=== PATIENT | male | born 1965 | race African-American/Black ===

== ENCOUNTER 2017-10-25 17:32 | Emergency (ER) | payer OTHER ==
[2017-10-25 18:07] VITALS: BP 138/83; PULSE 86; TEMP 98.5; BMI 36.6
--- NOTE | 2017-10-25 18:07 | PDOC ---
Rapid Medical Evaluation Time Seen by Provider: 10/25/17 17:53 Medical Evaluation: 10/25/17 18:04 Pt c/o: abd pain with vomiting since yesterday 5 total, no fever, no diarrhea Pt on brief exam: vss, Pt ordered for: cbc, comp, lipase, mag, zofran sl P to proceed to the ED: Discharge Disposition - Diagnosis Abdominal pain - Referrals - Patient Instructions - Post Discharge Activity
[2017-10-25] MEDS ORDERED: ONDANSETRON *ODT* 4 MG TABLET SL ONE ×2 (18:08→19:47)
[2017-10-25] MEDS ORDERED: ONDANSETRON *ODT* 4 MG TABLET ONE ×2 (18:15→19:50)
[2017-10-25 18:27] LABS: BASO % 0.6 % (0-2.0); EOS % 1.4 % (0-4.5); HEMATOCRIT 46.9 % (35.4-49); HEMOGLOBIN 15.7 GM/dL (11.7-16.9); LYMPH % 16.6 % (8-40); MCH 33.6 pg (25.7-33.7); MCHC 33.5 g/dl (32.0-35.9); MEAN CELL VOLUME 100.5 fl (80-96); MEAN PLT VOLUME 8.6 fl (7.5-11.1); MONO % 7.9 % (3.8-10.2); NEUT % 73.5 % (42.8-82.8); PLATELET COUNT 194 K/MM3 (134-434); RBC 4.66 M/mm3 (4.00-5.60); RDW 12.5 % (11.9-15.9); WHITE BLOOD COUNT 6.4 K/mm3 (4.0-10.0)
[2017-10-25 19:12] LABS: URINE APPEARANCE CLEAR; URINE BILIRUBIN NEGATIVE (NEGATIVE); URINE BLOOD NEGATIVE (NEGATIVE); URINE COLOR YELLOW; URINE GLUCOSE (UA) NEGATIVE (NEGATIVE); URINE KETONE NEGATIVE (NEGATIVE); URINE LEUK ESTERASE NEGATIVE (NEGATIVE); URINE NITRITE NEGATIVE (NEGATIVE); URINE PROTEIN NEGATIVE (NEGATIVE); URINE UROBILINOGEN NEGATIVE mg/dL (0.2-1.0)
[2017-10-25 19:16] LABS: ANION GAP 5 (8-16); BILIRUBIN,TOTAL 0.5 mg/dL (0.2-1.0); BLOOD UREA NITROGEN 12 mg/dL (7-18); CALCIUM 8.5 mg/dL (8.5-10.1); CHLORIDE 106 mmol/L (98-107); CO2 28 mmol/L (21-32); CREATININE 1.6 mg/dL (0.7-1.3); GLUCOSE,RANDOM 85 mg/dL (74-106); SGOT/AST 12 U/L (15-37); SGPT/ALT 27 U/L (12-78); SODIUM 139 mmol/L (136-145); TOT PROT 8.1 g/dl (6.4-8.2)
[2017-10-25 19:17] LABS: ALK PHOS 72 U/L (45-117); LIPASE 380 U/L (73-393)
--- NOTE | 2017-10-25 19:46 | PDOC ---
History of Present Illness - General Chief Complaint: Pain, Acute Stated Complaint: NAUSEA/VOMITING Time Seen by Provider: 10/25/17 17:53 - History of Present Illness Initial Comments: 52 year old male with history of HLD presenting with nausea, NBNB vomiting, and NB diarrhea for the past three days. Patient states he had sudden onset of these symptoms with occasional relief with 2 episodes of vomiting daily and two episodes of diarrhea daily. He states that he ate a whole chicken dinner last night and went to bed without issue but had an episode of nausea with vomiting this morning after walking around and running errands in [facility]. He does admit to an occasional band like headache without visual symptoms. Denies fevers , chills, chest pain, syncope, SOB, or other sick symptoms. Past History - Past Medical History Allergies/Adverse Reactions: Allergies Allergy/AdvReac Type Severity Reaction Status Date / Time No Known Allergies Allergy Verified 10/25/17 18:06 Home Medications: Ambulatory Orders Pantoprazole Sodium [Protonix] 40 mg PO DAILY #30 tablet. 10/25/17 COPD: No Other medical history: DENIES MEDICAL HX - Suicide/Smoking/Psychosocial Hx Smoking History: Never smoked Hx Alcohol Use: No Drug/Substance Use Hx: No Review of Systems - Review of Systems Constitutional: No: Chills, Fever, Loss of Appetite HEENTM: No: Recent change in vision Respiratory: No: Cough, Shortness of Breath, Wheezing Cardiac (ROS): No: Chest Pain, Irregular Heart Rate ABD/GI: Yes: Diarrhea, Nausea, Vomiting : No: Dysuria, Discharge, Frequency Musculoskeletal: No: Back Pain, Joint Pain Integumentary: No: Lesions, Lumps, Pallor, Pruritus, Rash Neurological: No: Headache, Numbness, Paresthesia Psychiatric: No: Anxiety, Depression *Physical Exam - Vital Signs Last Vital Signs Temp Pulse Resp BP Pulse Ox 98.5 F 86 16 138/83 97 10/25/17 18:02 10/25/17 18:02 10/25/17 18:02 10/25/17 18:02 10/25/17 18:02 - Physical Exam General Appearance: Yes: Nourished, Appropriately Dressed. No: Apparent Distress HEENT: positive: EOMI, BECKIE, Normal ENT Inspection, Normal Voice Neck: positive: Trachea midline, Normal Thyroid, Supple. negative: Tender, Rigid Respiratory/Chest: positive: Lungs Clear, Normal Breath Sounds. negative: Chest Tender, Respiratory Distress Cardiovascular: positive: Regular Rhythm, Regular Rate Gastrointestinal/Abdominal: positive: Normal Bowel Sounds, Tender (tender to deep palpation in the epigastrium), Flat, Soft Musculoskeletal: positive: Normal Inspection. negative: CVA Tenderness Extremity: positive: Normal Capillary Refill, Normal Inspection, Normal Range of Motion. negative: Tender Integumentary: positive: Normal Color, Dry, Warm Neurologic: positive: Fully Oriented, Alert, Normal Mood/Affect, Normal Response , Motor Strength 01/19 ED Treatment Course - LABORATORY CBC & Chemistry Diagram: 10/25/17 18:21 10/25/17 18:21 - ADDITIONAL ORDERS Additional order review: Laboratory Results 10/25/17 10/25/17 18:51 18:21 Sodium 139 Potassium 4.0 Chloride 106 Carbon Dioxide 28 Anion Gap 5 L BUN 12 Creatinine 1.6 H Creat Clearance w eGFR 45.98 Random Glucose 85 Calcium 8.5 Magnesium 2.0 Total Bilirubin 0.5 AST 12 L ALT 27 Alkaline Phosphatase 72 Total Protein 8.1 Albumin 4.0 Lipase 380 Urine Color Yellow Urine Appearance Clear Urine pH 5.0 Ur Specific [place] 1.023 Urine Protein Negative Urine Glucose (UA) Negative Urine Ketones Negative Urine Blood Negative Urine Nitrite Negative Urine Bilirubin Negative Urine Urobilinogen Negative Ur Leukocyte Esterase Negative 10/25/17 18:21 RBC 4.66 MCV 100.5 H MCHC 33.5 RDW 12.5 MPV 8.6 Neutrophils % 73.5 Lymphocytes % 16.6 Monocytes % 7.9 Eosinophils % 1.4 Basophils % 0.6 - Medications Given in the ED: ED Medications Discontinued Medications Generic Name Dose Route Start Last Admin Trade Name Freq PRN Reason Stop Dose Admin Ondansetron HCl 4 mg 10/25/17 18:08 10/25/17 18:16 Zofran Odt - SL 10/25/17 18:09 4 mg ONCE ONE Administration Medical Decision Making - Medical Decision Making 52 year old male with 3 days of gastroenteritis and slight headache. States that headache may be worse in the mornings and is a new headache, Because of the constellation of a new headache in a 52 year old with GI symptoms we will performed a head CT to rule out intracranial lesions. Head CT was negative. Labs were only significant for elevated creatinine of 1.6 but patient urinating well. Likely an element of dehydration. Patient's symptoms improved with Zofran , Maalox, and 1 liter NS. Abdominal exam remained benign. Will send home with results, protonix, and GI follow up. 10/25/17 23:30 *DC/Admit/Observation/Transfer Diagnosis at time of Disposition: Gastroenteritis Abdominal pain Qualifiers: Abdominal location: epigastric Qualified Code(s): R10.13 - Epigastric pain - Discharge Dispostion Disposition: HOME Condition at time of disposition: Stable - Prescriptions Prescriptions: Pantoprazole Sodium [Protonix] 40 mg PO DAILY #30 tablet.dr - Referrals Referrals: Drew Isaac [Primary Care Provider] - Ethan Torres MD [Staff Physician] - - Patient Instructions Printed Discharge Instructions: DI for Abdominal Pain-Adult Additional Instructions: Please follow up with your doctor or the doctor provided for further evaluation. - Post Discharge Activity
--- NOTE | 2017-10-25 19:49 | PDOC ---
Attending Attestation - [facility] HPI: 10/25/17 19:53 The patient is a 52 year old male, with a significant past medical history of hyperlipidemia (taking atorvastatin), who presents to the emergency department with sudden onset of nausea, vomiting, non-radiating epigastric pain, diarrhea, and subjective fevers about 3 days ago. The patient states he has been taking Tylenol intermittently for his subjective fevers, but denies recording his temperature. He reports his emesis as nonbloody. He reports his stool is watery , but denies blood in his stool. The patient denies sick contacts and recent travels. The patient denies chest pain, shortness of breath, headache and dizziness. The patient denies chills, and constipation. The patient denies dysuria, frequency, urgency and hematuria. Allergies: NKDA - Physicial Exam PE: 10/25/17 19:57 GENERAL: Well developed, well nourished. Awake and alert. No acute distress. HEENT: Normocephalic, atraumatic. PERRLA, EOMI. No conjunctival pallor. Sclera are non- icteric. Moist mucous membranes. Oropharynx is clear. NECK: Supple. Full ROM. No JVD. Carotid pulses 2+ and symmetric, without bruits. No thyromegaly. No lymphadenopathy. CARDIOVASCULAR: Regular rate and rhythm. No murmurs, rubs, or gallops. Distal pulses are 2+ and symmetric. PULMONARY: No evidence of respiratory distress. Lungs clear to auscultation bilaterally. No wheezing, rales or rhonchi. ABDOMINAL: (+) minimal epigastric tenderness to deep palpation. Soft. Non-distended. No rebound or guarding. No organomegaly. Normoactive bowel sounds. MUSCULOSKELETAL Normal range of motion at all joints. No bony deformities or tenderness. No CVA tenderness. EXTREMITIES: No cyanosis. No clubbing. No edema. No calf tenderness. SKIN: Warm and dry. Normal capillary refill. No rashes. No jaundice. NEUROLOGICAL: Alert, awake, appropriate. Cranial nerves 2-12 intact. Normoreflexic in the upper and lower extremities. Normal speech. Toes are down-going bilaterally. Gait is normal without ataxia. PSYCHIATRIC: Cooperative. Good eye contact. Appropriate mood and affect. - Medical Decision Making 10/25/17 19:53 Documentation prepared by Micaela Keene, acting as medical claims processor for Samir Rudd DO <Micaela Keene - Last Filed: 10/25/17 19:57> - Resident Resident Name: TammyKaitjovanniadonis - ED Attending Attestation I have performed the following: I have examined & evaluated the patient, The case was reviewed & discussed with the resident, I agree w/resident's findings & plan, Exceptions are as noted - Medical Decision Making 10/25/17 20:57 {Pt treated and released. <Samir Rudd - Last Filed: 10/25/17 23:10> Discharge Disposition - Discharge Dispostion Admit: No <Samir Rudd - Last Filed: 10/25/17 23:10> - Diagnosis Abdominal pain - Discharge Dispostion Disposition: HOME Condition at time of disposition: Stable - Referrals Referrals: Drew Isaac [Primary Care Provider] - Ethan Torres MD [Staff Physician] - - Patient Instructions Printed Discharge Instructions: DI for Abdominal Pain-Adult Additional Instructions: Please follow up with your doctor or the doctor provided for further evaluation. - Post Discharge Activity
[2017-10-25] MEDS ORDERED: MAG HYDROX/AL HYDROX/SIMETH 30 ML UNIT-DOSE CUP PO ONE (19:50)
[2017-10-25] MEDS ORDERED: MAG HYDROX/AL HYDROX/SIMETH 30 ML UNIT-DOSE CUP ONE (19:53)
[2017-10-25] MEDS ORDERED: SODIUM CHLORIDE 0.9% 1000 ML INFUS.BAG IV ONE (21:41)
== END 2017-10-25 23:24 | disposition home or self-care (01) ==
LOC: JER 17:32
PROC: 3E0337Z Introduction of Electrolytic and Water Balance Substance into Peripheral Vein, Percutaneous Approach (ICD-10-PCS; principal; 2017-10-25)
DX: R10.13 Epigastric pain (principal); K52.9 Noninfective gastroenteritis and colitis, unspecified
CPT/HCPCS: 36415; 70450-TC; 80053; 81003; 83690; 83735; 85025; 87804; 99284-25

== ENCOUNTER 2017-10-30 07:22 | Observation (INO) | payer OTHER ==
[2017-10-30] MEDS ORDERED: SODIUM CHLORIDE 1,000 ML IV STA (08:57)
[2017-10-30] MEDS ORDERED: ONDANSETRON 4 MG/2 ML VIAL IVPUSH ONE (08:57)
[2017-10-30] MEDS ORDERED: MAG HYDROX/AL HYDROX/SIMETH 30 ML UNIT-DOSE CUP PO ONE (08:58)
[2017-10-30] MEDS ORDERED: ONDANSETRON 4 MG/2 ML VIAL ONE (09:09)
[2017-10-30] MEDS ORDERED: MAG HYDROX/AL HYDROX/SIMETH 30 ML UNIT-DOSE CUP ONE (09:09)
[2017-10-30] MEDS ORDERED: FAMOTIDINE 20 MG/50 ML IVPB 20 MG/50 ML MG IVPB ONE (09:15)
[2017-10-30 09:31] LABS: BASO % 0.8 % (0-2.0); EOS % 3.2 % (0-4.5); HEMATOCRIT 42.4 % (35.4-49); HEMOGLOBIN 14.3 GM/dL (11.7-16.9); LYMPH % 19.1 % (8-40); MCH 33.7 pg (25.7-33.7); MCHC 33.8 g/dl (32.0-35.9); MEAN CELL VOLUME 99.6 fl (80-96); MEAN PLT VOLUME 8.4 fl (7.5-11.1); MONO % 9.6 % (3.8-10.2); NEUT % 67.3 % (42.8-82.8); PLATELET COUNT 184 K/MM3 (134-434); RBC 4.25 M/mm3 (4.00-5.60); RDW 12.4 % (11.9-15.9); WHITE BLOOD COUNT 6.5 K/mm3 (4.0-10.0)
--- NOTE | 2017-10-30 09:39 | PDOC ---
Attending Attestation - Resident Resident Name: Deion Kaur - ED Attending Attestation I have performed the following: I have examined & evaluated the patient, The case was reviewed & discussed with the resident, I agree w/resident's findings & plan, Exceptions are as noted - HPI HPI: 10/30/17 09:38 52y M present with intermittent epigastric pain for the past fe days associated nbnb vomiting, also endorses several episodes of nonbloody diarrhea. pt notes pain seems worse about 30 min after eating and is associated with the vomiting. The pain has been more persistent recently. no associated fever/chills, sick contacts, recent travel, cp, sob. the pain is non exertional. on exam pt has mild epgiastric/RUQ tendernes ddx includes gastritis, pancreatitis, gal lstones, acs will btaon blood work RQU US ekg 10/30/17 12:45 labs reviewed noted forslightly eelvated lipase GB US shows no gall stones considered outpt management pt was reasssed and was unable to toleate oral intake will observe the pt in the hosptial for his possibly evolving pancreattis - Physicial Exam PE: 11/01/17 10:57 see above - Medical Decision Making 11/01/17 10:57 see above Heart Score/ECG Review - ECG Impressions Comment:: 10/30/17 10:47 Twelve-lead EKG was performed and reviewed by me. There is normal sinus rhythm with a normal rate. rate of 63 The axis is normal. The intervals are normal. There is normal R wave progression There are no ST or T wave abnormalities. Impression: Normal twelve-lead EKG
--- NOTE | 2017-10-30 09:47 | PDOC ---
History of Present Illness - General Chief Complaint: Pain, Acute Stated Complaint: ABD PAIN Time Seen by Provider: 10/30/17 08:32 History Source: Patient Exam Limitations: No Limitations - History of Present Illness Initial Comments: 10/30/17 09:41 Patient is 52M with history of HLD here today complaining of epigastric abdominal pain. He says that he was evaluated 5 days ago. Review of chart shows abdominal labs, head ct done, all within normal limits with exception of Cr at 1.6. Patient was discharged with pantoprazole and PCP follow up. Patient describes the abdominal pain as colicky, with sharp sudden onsets with gradual improvement. Patient does not associated changes in pain level with eating. Patient also complains of associated nausea, vomiting, and diarrhea. He denies any blood or bile in stool and vomit. Patient states he is able to tolerate PO. Past History - Past Medical History Allergies/Adverse Reactions: Allergies Allergy/AdvReac Type Severity Reaction Status Date / Time No Known Allergies Allergy Verified 10/30/17 07:26 Home Medications: Ambulatory Orders Pantoprazole Sodium [Protonix] 40 mg PO DAILY #30 tablet. 10/25/17 COPD: No Hypercholesterolemia: Yes - Suicide/Smoking/Psychosocial Hx Smoking History: Never smoked Information on smoking cessation initiated: No Hx Alcohol Use: No Drug/Substance Use Hx: No Substance Use Type: None Review of Systems - Review of Systems Comments:: 10/30/17 09:45 GENERAL/CONSTITUTIONAL: No fever or chills. No weakness. HEAD, EYES, EARS, NOSE AND THROAT: No change in vision. No sore throat. CARDIOVASCULAR: No chest pain or shortness of breath RESPIRATORY: No cough, wheezing, or hemoptysis. GASTROINTESTINAL: Positive for nausea, vomiting, diarrhea. Negative for constipation. GENITOURINARY: No dysuria, frequency, or change in urination. MUSCULOSKELETAL: No joint or muscle swelling or pain. No neck or back pain. SKIN: No rash NEUROLOGIC: Positive for headache. Negative for loss of consciousness, or change in strength/sensation. ENDOCRINE: No increased thirst. No abnormal weight change HEMATOLOGIC/LYMPHATIC: No anemia, easy bleeding, or history of blood clots. ALLERGIC/IMMUNOLOGIC: No hives or skin allergy. *Physical Exam - Vital Signs Last Vital Signs Temp Pulse Resp BP Pulse Ox 98.1 F 68 18 126/72 100 10/30/17 07:27 10/30/17 07:27 10/30/17 07:27 10/30/17 07:27 10/30/17 07:27 - Physical Exam Comments: 10/30/17 09:45 GENERAL: Awake, alert, and fully oriented, in no acute distress, sitting up in bed, appears comfortable HEAD: No signs of trauma, normocephalic, atraumatic EYES: PERRLA, EOMI, sclera anicteric, conjunctiva clear ENT: Auricles normal inspection, hearing grossly normal, nares patent, oropharynx clear without exudates. Moist mucosa NECK: Normal ROM, supple, no lymphadenopathy, JVD, or masses LUNGS: No distress, speaks full sentences, clear to auscultation bilaterally HEART: Regular rate and rhythm, normal S1 and S2, no murmurs, rubs or gallops, peripheral pulses normal and equal bilaterally. ABDOMEN: Tender to palpation in RUQ and epigastrium. Bennett negative. No guarding, no rebound. No masses EXTREMITIES: Normal inspection, Normal range of motion, no edema. No clubbing or cyanosis. NEUROLOGICAL: Cranial nerves II through XII grossly intact. Normal speech, normal gait, no focal sensorimotor deficits SKIN: Warm, Dry, normal turgor, no rashes or lesions noted. ED Treatment Course - LABORATORY CBC & Chemistry Diagram: 10/30/17 09:25 10/30/17 09:25 - RADIOLOGY Radiology Studies Ordered: Category Date Time Status ABDOMEN US [US] Stat Ultrasound 10/30/17 08:58 Ordered - Medications Given in the ED: ED Medications Discontinued Medications Generic Name Dose Route Start Last Admin Trade Name Corry PRN Reason Stop Dose Admin Al Hydroxide/Mg Hydroxide 30 ml 10/30/17 08:58 10/30/17 09:31 Mylanta Oral Suspension - PO 10/30/17 08:59 30 ml ONCE ONE Administration Ondansetron HCl 4 mg 10/30/17 08:57 10/30/17 09:31 Zofran Injection IVPUSH 10/30/17 08:58 4 mg ONCE ONE Administration Medical Decision Making - Medical Decision Making 10/30/17 09:47 Patient is 52M with history of HLD here today complaining of abdominal pain. Vital signs stable and normal. Bedside ultrasound of gallbladder shows possible gallstone, exam limited by probe crystal dysfunction. Will evaluate further with abdominal labs, ekg, and formal ultrasound. Will treat with fluids, zofran , pepcid, maalox. Differential diagnosis includes, but is not limited to: biliary colic, cholecystitis, choledocholithiasis, colitis, pancreatitis. 10/30/17 16:46 Laboratory Tests 10/30/17 10/30/17 10/30/17 09:25 09:25 10:59 WBC 6.5 Hgb 14.3 Hct 42.4 Plt Count 184 Creatinine 1.4 H Lipase 634 H Urine Nitrite Negative Ur Leukocyte Esterase Negative Lipase is mildly elevated. Ultrasound shows no evidence of gallstones, no other abnormality seen. Patient unable to tolerate PO, still has pain. Will admit to observation. 10/30/17 18:[address] Black via Dr Raymond *DC/Admit/Observation/Transfer Diagnosis at time of Disposition: Abdominal pain - Discharge Dispostion Condition at time of disposition: Stable Admit: Yes - Referrals Referrals: Drew Isaac [Primary Care Provider] - - Patient Instructions - Post Discharge Activity
[2017-10-30 09:58] LABS: ALBUMIN 3.5 g/dl (3.4-5.0); ANION GAP 7 (8-16); BILIRUBIN,TOTAL 0.6 mg/dL (0.2-1.0); BLOOD UREA NITROGEN 13 mg/dL (7-18); CHLORIDE 106 mmol/L (98-107); CO2 26 mmol/L (21-32); CREATININE 1.4 mg/dL (0.7-1.3); GLUCOSE,RANDOM 85 mg/dL (74-106); POTASSIUM 3.8 mmol/L (3.5-5.1); SGOT/AST 10 U/L (15-37); SGPT/ALT 26 U/L (12-78); SODIUM 139 mmol/L (136-145); TOT PROT 7.1 g/dl (6.4-8.2)
[2017-10-30 09:59] LABS: ALK PHOS 80 U/L (45-117)
[2017-10-30 10:13] LABS: LIPASE 634 U/L (73-393)
[2017-10-30] MEDS ORDERED: LACTATED RINGERS SOLUTION 1000 ML INFUS.BAG IV ONE (11:15)
[2017-10-30 11:18] LABS: URINE APPEARANCE CLEAR; URINE BILIRUBIN NEGATIVE (NEGATIVE); URINE BLOOD NEGATIVE (NEGATIVE); URINE COLOR STRAW; URINE GLUCOSE (UA) NEGATIVE (NEGATIVE); URINE KETONE NEGATIVE (NEGATIVE); URINE LEUK ESTERASE NEGATIVE (NEGATIVE); URINE NITRITE NEGATIVE (NEGATIVE); URINE PROTEIN NEGATIVE (NEGATIVE); URINE UROBILINOGEN NEGATIVE mg/dL (0.2-1.0)
--- NOTE | 2017-10-30 14:10 | EKG ---
Test Reason : Blood Pressure : / mmHG Vent. Rate : 063 BPM Atrial Rate : 063 BPM P-R Int : 140 ms QRS Dur : 084 ms QT Int : 424 ms P-R-T Axes : 062 031 038 degrees QTc Int : 433 ms NORMAL SINUS RHYTHM NORMAL ECG NO PREVIOUS ECGS AVAILABLE Confirmed by MD Delphine, Jered ([id number]) on 10/30/2017 2:09:44 PM Referred By: Confirmed By:Jered Akers MD
[2017-10-30] MEDS ORDERED: METOCLOPRAMIDE HCL INJECTION 10 MG/2 ML VIAL IVPUSH ONE (16:49)
[2017-10-30] MEDS ORDERED: METOCLOPRAMIDE HCL INJECTION 10 MG/2 ML VIAL ONE (16:53)
--- NOTE | 2017-10-30 19:04 | PN ---
Teaching Attending Note Name of Resident: Charlette Raymond ATTENDING PHYSICIAN STATEMENT I saw and evaluated the patient. I reviewed the resident's note and discussed the case with the resident. I agree with the resident's findings and plan as documented. SUBJECTIVE: OBJECTIVE: Vital Signs Period Temp Pulse Resp BP Sys/Ortega Pulse Ox Last 24 Hr 98.1 F-99.3 F 68-74 18-20 126-129/72-76 99-100 Laboratory Tests 10/30/17 10/30/17 10/30/17 09:25 09:25 10:59 WBC 6.5 RBC 4.25 Hgb 14.3 Hct 42.4 MCV 99.6 H MCH 33.7 MCHC 33.8 RDW 12.4 Plt Count 184 MPV 8.4 Neutrophils % 67.3 Lymphocytes % 19.1 Monocytes % 9.6 Eosinophils % 3.2 D Basophils % 0.8 Sodium 139 Potassium 3.8 Chloride 106 Carbon Dioxide 26 Anion Gap 7 L BUN 13 Creatinine 1.4 H Creat Clearance w eGFR 53.64 Random Glucose 85 Calcium 8.0 L Total Bilirubin 0.6 AST 10 L ALT 26 Alkaline Phosphatase 80 Total Protein 7.1 Albumin 3.5 Lipase 634 H Urine Color Straw Urine Appearance Clear Urine pH 6.0 Ur Specific [place] 1.008 Urine Protein Negative Urine Glucose (UA) Negative Urine Ketones Negative Urine Blood Negative Urine Nitrite Negative Urine Bilirubin Negative Urine Urobilinogen Negative Ur Leukocyte Esterase Negative Home Medications Medication Instructions Recorded Pantoprazole Sodium [Protonix] 40 mg PO DAILY #30 tablet. 10/25/17 ASSESSMENT AND PLAN:
--- NOTE | 2017-10-30 19:11 | HP ---
CHIEF COMPLAINT: abdominal pain PCP: HISTORY OF PRESENT ILLNESS: This is a 52 year old male with no known significant past medical history, presents to the emergency room with complaints of intractable abdominal pain, nausea, vomiting, diarrhea for the past week. He was recently seen here at [facility] this past week for nausea, vomiting and headache, was sent home on maalox and protonix. Today he denies headache, but still with continuous NBNB vomiting , non bloody watery diarrhea, and sharp intermittent mid epigastric pain. Denies fever, chills, recent travel history or sick contacts. He had a colonoscopy in [place] a week ago, results unknown, symptoms started one day later. ER course was notable for: wbc wnl; slightly elevated lipase; abdominal ultrasound with gallstones; no billiary obstruction or dilation. 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 10/25/17 REVIEW OF SYSTEMS CONSTITUTIONAL: Absent: fever, chills, diaphoresis, generalized weakness, malaise, loss of appetite, weight change HEENT: Absent: rhinorrhea, nasal congestion, throat pain, throat swelling, difficulty swallowing, mouth swelling, ear pain, eye pain, visual changes CARDIOVASCULAR: Absent: chest pain, syncope, palpitations, irregular heart rate, lightheadedness , peripheral edema RESPIRATORY: Absent: cough, shortness of breath, dyspnea with exertion, orthopnea, wheezing, stridor, hemoptysis GASTROINTESTINAL: Positive:abdominal pain, abdominal distension, nausea, vomiting, diarrhea, Absent: constipation, melena, hematochezia GENITOURINARY: Absent: dysuria, frequency, urgency, hesitancy, hematuria, flank pain, genital pain MUSCULOSKELETAL: Absent: myalgia, arthralgia, joint swelling, back pain, neck pain SKIN: Absent: rash, itching, pallor HEMATOLOGIC/IMMUNOLOGIC: Absent: easy bleeding, easy bruising, lymphadenopathy, frequent infections ENDOCRINE: Absent: unexplained weight gain, unexplained weight loss, heat intolerance, cold intolerance NEUROLOGIC: Absent: headache, focal weakness or paresthesias, dizziness, unsteady gait, seizure, mental status changes, bladder or bowel incontinence PSYCHIATRIC: Absent: anxiety, depression, suicidal or homicidal ideation, hallucinations. PHYSICAL EXAMINATION Vital Signs - 24 hr 10/30/17 10/30/17 07:27 18:22 Temperature 98.1 F 99.3 F Pulse Rate 68 Pulse Rate [ 74 Left Radial] Respiratory 18 20 Rate Blood Pressure 126/72 Blood Pressure 129/76 [Left Arm] O2 Sat by Pulse 100 99 Oximetry (%) GENERAL: Awake, alert, and fully oriented, in no acute distress. HEAD: Normal with no signs of trauma. LUNGS: Breath sounds equal, clear to auscultation bilaterally. No wheezes, and no crackles. No accessory muscle use. HEART: Regular rate and rhythm, normal S1 and S2 without murmur, rub or gallop. ABDOMEN: Soft, tender, not distended, normoactive bowel sounds, no guarding, no rebound, no masses. No hepatomegaly or splenomegaly. MUSCULOSKELETAL: Normal range of motion at all joints. No bony deformities or tenderness. No CVA tenderness. UPPER EXTREMITIES: 2+ pulses, warm, well-perfused. No cyanosis. No clubbing. No peripheral edema. LOWER EXTREMITIES: 2+ pulses, warm, well-perfused. No calf tenderness. No peripheral edema. NEUROLOGICAL: Cranial nerves II-XII intact. Normal speech. Normal gait. PSYCHIATRIC: Cooperative. Good eye contact. Appropriate mood and affect. SKIN: Warm, dry, normal turgor, no rashes or lesions noted, normal capillary refill. Laboratory Results - last 24 hr 10/30/17 10/30/17 10/30/17 09:25 09:25 10:59 WBC 6.5 RBC 4.25 Hgb 14.3 Hct 42.4 MCV 99.6 H MCH 33.7 MCHC 33.8 RDW 12.4 Plt Count 184 MPV 8.4 Neutrophils % 67.3 Lymphocytes % 19.1 Monocytes % 9.6 Eosinophils % 3.2 D Basophils % 0.8 Sodium 139 Potassium 3.8 Chloride 106 Carbon Dioxide 26 Anion Gap 7 L BUN 13 Creatinine 1.4 H Creat Clearance w eGFR 53.64 Random Glucose 85 Calcium 8.0 L Total Bilirubin 0.6 AST 10 L ALT 26 Alkaline Phosphatase 80 Total Protein 7.1 Albumin 3.5 Lipase 634 H Urine Color Straw Urine Appearance Clear Urine pH 6.0 Ur Specific [place] 1.008 Urine Protein Negative Urine Glucose (UA) Negative Urine Ketones Negative Urine Blood Negative Urine Nitrite Negative Urine Bilirubin Negative Urine Urobilinogen Negative Ur Leukocyte Esterase Negative ASSESSMENT/PLAN: This is a 52 year old male with no known medical history, presents with abdominal pain, n, v, d, for the past week. Likely etiology viral gastroeneritis. #abdominal pain, n, v, diarrhea; most likely viral vs bacterial etiology: vs cholecysitis less likely; -npo overnight; try soft non fatty breakfast in am -keep hydrated; IVF NS -monitor electrolytes -zofran prn -pain management -r/o c diff -influenza swab -get colonoscopy results #elevated lipase; pancreatitis unlikely; -not 3x upper limit of normal ; may be due to gall stones -repeat lipase in am #elevated creatinine; acute vs chronic? -improved from previous -Cr 1.4; previous cr 1.9 -most likely from dehydration -calculate FE NA -IVF Hydration; VTE: scds FEN: Fluids; NS Electrolytes: monitor; Diet: soft; in am Disposition: Obs; Case discussed with attending Dr. Lakshmi Raymond MD, PGY -2 Problem List - Problem (1) Acute kidney failure Code(s): N17.9 - ACUTE KIDNEY FAILURE, UNSPECIFIED (2) Abdominal pain Code(s): R10.9 - UNSPECIFIED ABDOMINAL PAIN (3) Gastroenteritis Code(s): K52.9 - NONINFECTIVE GASTROENTERITIS AND COLITIS, UNSPECIFIED Visit type - Emergency Visit Emergency Visit: Yes ED Registration Date: 10/30/17 Care time: The patient presented to the Emergency Department on the above date and was hospitalized for further evaluation of their emergent condition. - New Patient This patient is new to me today: Yes Date on this admission: 10/30/17 - Critical Care Critical Care patient: No
[2017-10-30] MEDS ORDERED: ONDANSETRON 4 MG/2 ML VIAL IVPUSH PRN (19:14)
[2017-10-30] MEDS ORDERED: PANTOPRAZOLE SODIUM 40 MG VIAL IVPUSH ONE (19:30)
[2017-10-30] MEDS ORDERED: PANTOPRAZOLE SODIUM 40 MG VIAL ONE (20:27)
[2017-10-30] MEDS: SODIUM CHLORIDE 1,000 ML IV SCH (20:34)
[2017-10-30] MEDS ORDERED: MORPHINE SULFATE 10 MG/1 ML *VIAL IVPUSH PRN (22:45)
[2017-10-31 03:32] VITALS: BMI 37.1
[2017-10-31 07:52] LABS: BASO % 0.7 % (0-2.0); EOS % 4.6 % (0-4.5); HEMATOCRIT 41.6 % (35.4-49); HEMOGLOBIN 13.9 GM/dL (11.7-16.9); LYMPH % 30.1 % (8-40); MCH 33.4 pg (25.7-33.7); MCHC 33.3 g/dl (32.0-35.9); MEAN CELL VOLUME 100.2 fl (80-96); MEAN PLT VOLUME 8.6 fl (7.5-11.1); MONO % 9.9 % (3.8-10.2); NEUT % 54.7 % (42.8-82.8); PLATELET COUNT 172 K/MM3 (134-434); RBC 4.15 M/mm3 (4.00-5.60); RDW 12.7 % (11.9-15.9); WHITE BLOOD COUNT 5.2 K/mm3 (4.0-10.0)
--- NOTE | 2017-10-31 07:59 | PN ---
Physical Exam: SUBJECTIVE: Patient seen and examined. No acute events overnight. Patient says his epigastric abdominal pain is now a 7/10 compared to yesterday's 10/10 pain. He says he had 1 non bloody watery bowel movement last night. He denies nausea, vomiting, SOB, chest pain, dizziness. OBJECTIVE: Vital Signs Period Temp Pulse Resp BP Sys/Ortega Pulse Ox Last 24 Hr 97.9 F-99.3 F 62-74 18-20 111-130/65-78 97-100 GENERAL: The patient is awake, alert, and fully oriented, in no acute distress. HEAD: Normal with no signs of trauma. EYES: PERRL, extraocular movements intact, sclera anicteric, conjunctiva clear. No ptosis. ENT:] oropharynx clear without exudates, moist mucous membranes. NECK: supple. LUNGS: Breath sounds equal, clear to auscultation bilaterally, no wheezes, no crackles, no accessory muscle use. HEART: Regular rate and rhythm, S1, S2 without murmur, rub or gallop. ABDOMEN: Soft, epigastric tenderness, +BS, nondistended, normoactive bowel sounds, no guarding, no rebound EXTREMITIES: 2+ pulses, warm, well-perfused, no edema. NEUROLOGICAL: Cranial nerves II through XII grossly intact. Normal speech, gait not observed. PSYCH: Normal mood, normal affect. SKIN: Warm, dry, normal turgor, no rashes or lesions noted Laboratory Results - last 24 hr 10/30/17 10/30/17 10/30/17 09:25 09:25 10:59 WBC 6.5 RBC 4.25 Hgb 14.3 Hct 42.4 MCV 99.6 H MCH 33.7 MCHC 33.8 RDW 12.4 Plt Count 184 MPV 8.4 Neutrophils % 67.3 Lymphocytes % 19.1 Monocytes % 9.6 Eosinophils % 3.2 D Basophils % 0.8 Sodium 139 Potassium 3.8 Chloride 106 Carbon Dioxide 26 Anion Gap 7 L BUN 13 Creatinine 1.4 H Creat Clearance w eGFR 53.64 Random Glucose 85 Calcium 8.0 L Total Bilirubin 0.6 AST 10 L ALT 26 Alkaline Phosphatase 80 Total Protein 7.1 Albumin 3.5 Lipase 634 H Urine Color Straw Urine Appearance Clear Urine pH 6.0 Ur Specific Douglas 1.008 Urine Protein Negative Urine Glucose (UA) Negative Urine Ketones Negative Urine Blood Negative Urine Nitrite Negative Urine Bilirubin Negative Urine Urobilinogen Negative Ur Leukocyte Esterase Negative 10/31/17 06:00 WBC 5.2 RBC 4.15 Hgb 13.9 Hct 41.6 MCV 100.2 H MCH 33.4 MCHC 33.3 RDW 12.7 Plt Count 172 MPV 8.6 Neutrophils % 54.7 Lymphocytes % 30.1 D Monocytes % 9.9 Eosinophils % 4.6 H Basophils % 0.7 Sodium Potassium Chloride Carbon Dioxide Anion Gap BUN Creatinine Creat Clearance w eGFR Random Glucose Calcium Total Bilirubin AST ALT Alkaline Phosphatase Total Protein Albumin Lipase Urine Color Urine Appearance Urine pH Ur Specific Douglas Urine Protein Urine Glucose (UA) Urine Ketones Urine Blood Urine Nitrite Urine Bilirubin Urine Urobilinogen Ur Leukocyte Esterase Active Medications Generic Name Dose Route Start Last Admin Trade Name Freq PRN Reason Stop Dose Admin Sodium Chloride 1,000 mls @ 125 mls/hr 10/30/17 19:15 10/30/17 20:34 Normal Saline - IV 125 mls/hr ASDIR XOCHILT Administration Morphine Sulfate 0.5 mg 10/30/17 22:45 Morphine Injection - IVPUSH Q6H PRN PAIN LEVEL 7 - 10 Ondansetron HCl 4 mg 10/30/17 19:14 Zofran Injection IVPUSH Q4H PRN NAUSEA AND/OR VOMITING Pantoprazole Sodium 40 mg 10/31/17 10:00 Protonix - PO DAILY [facility] ASSESSMENT/PLAN: This is a 52 year old male with no known medical history, presents with abdominal pain, n, v, d, for the past week. Likely etiology viral gastroeneritis. #Epigastric Pain/Nausea/Vomiting -Likely secondary to Viral Gastroenteritis vs Mild pancreatitis vs Gastritis -improving -No Leukocytosis, afebrile -GI consulted: Dr. Torres -IV Fluids NS @ 125ml/hour -Morphine 0.5mg q6h -Zofran 4mg Q4H -Protonix 40mg Daily -Abd/Renal U/S unremarkable for acute pathology. The pacreas is obscured by bowel gas and cannot be evaluated. -Abd CT w/o contrast ordered -Dispo planning in 24 hours if non concerning imaging, tolerating diet well, pending GI input. #Macrocytic Anemia -B12, Folate pending #Elevated Creatinine -acute vs chronic -urine electrolytes, creatinine -IV fluids #FEN IV fluids NS @125ml/hour Replete as needed Soft diet #PPX EAB Visit type - Emergency Visit Emergency Visit: Yes ED Registration Date: 10/30/17 Care time: The patient presented to the Emergency Department on the above date and was hospitalized for further evaluation of their emergent condition. - New Patient This patient is new to me today: Yes Date on this admission: 10/31/17 - Critical Care Critical Care patient: No
[2017-10-31 08:13] LABS: CHLORIDE 107 mmol/L (98-107); POTASSIUM 4.2 mmol/L (3.5-5.1); SODIUM 141 mmol/L (136-145)
[2017-10-31 09:10] LABS: ALBUMIN 3.1 g/dl (3.4-5.0); ALK PHOS 57 U/L (45-117); ANION GAP 7 (8-16); BILIRUBIN,TOTAL 0.6 mg/dL (0.2-1.0); BLOOD UREA NITROGEN 11 mg/dL (7-18); CALCIUM 8.3 mg/dL (8.5-10.1); CO2 27 mmol/L (21-32); CREATININE 1.6 mg/dL (0.7-1.3); GLUCOSE,RANDOM 92 mg/dL (74-106); MAGNESIUM 2.2 mg/dL (1.8-2.4); PHOSPHOROUS 2.6 mg/dL (2.5-4.9); SGOT/AST 11 U/L (15-37); SGPT/ALT 22 U/L (12-78); TOT PROT 6.6 g/dl (6.4-8.2)
[2017-10-31 09:24] LABS: LIPASE 564 U/L (73-393)
[2017-10-31] MEDS: PANTOPRAZOLE 40 MG TABLET (FP) PO SCH (09:41)
[2017-10-31] MEDS: SODIUM CHLORIDE 1,000 ML IV SCH (09:41)
[2017-10-31] MEDS ORDERED: PANTOPRAZOLE 40 MG TABLET (FP) PO ONE (10:00)
--- NOTE | 2017-10-31 18:13 | PN ---
Teaching Attending Note Name of Resident: Zakia Fry ATTENDING PHYSICIAN STATEMENT Time of evaluation: 12:30 PM I saw and evaluated the patient. I reviewed the resident's note and discussed the case with the resident. I agree with the resident's findings and plan as documented. SUBJECTIVE: Patient seen and examined. Still with epigastric abdominal pain, though improved from admission. Eating better. No other complaints. OBJECTIVE: Vital Signs Period Temp Pulse Resp BP Sys/Ortega Pulse Ox Last 24 Hr 97.5 F-99.3 F 62-87 18-20 111-130/64-78 97-100 Intake & Output 10/28/17 10/29/17 10/30/17 10/31/17 23:59 23:59 23:59 23:59 Intake Total 1100 Balance 1100 Weight 220 lb 223 lb 4.8 oz General: sitting at edge of bed in no acute distress Abdomen: soft, epigastric tenderness, no voluntary or involuntary guarding or rigidity, ND, positive bowel sounds extremities: no edema Chest: CTAB, no rales or wheezing Home Medication List Medication Instructions Recorded Confirmed Type Atorvastatin Ca [Lipitor] 10 mg PO DAILY 10/31/17 10/31/17 History Active Medications Generic Name Dose Route Start Last Admin Trade Name Freq PRN Reason Stop Dose Admin Sodium Chloride 1,000 mls @ 125 mls/hr 10/30/17 19:15 10/31/17 09:41 Normal Saline - IV 125 mls/hr ASDIR XOCHILT Administration Morphine Sulfate 0.5 mg 10/30/17 22:45 Morphine Injection - IVPUSH Q6H PRN PAIN LEVEL 7 - 10 Ondansetron HCl 4 mg 10/30/17 19:14 Zofran Injection IVPUSH Q4H PRN NAUSEA AND/OR VOMITING Pantoprazole Sodium 40 mg 10/31/17 10:00 10/31/17 09:41 Protonix - PO 40 mg DAILY XOCHILT Administration Laboratory Results - last 24 hr 10/31/17 10/31/17 10/31/17 06:00 06:00 08:15 WBC 5.2 RBC 4.15 Hgb 13.9 Hct 41.6 MCV 100.2 H MCH 33.4 MCHC 33.3 RDW 12.7 Plt Count 172 MPV 8.6 Neutrophils % 54.7 Lymphocytes % 30.1 D Monocytes % 9.9 Eosinophils % 4.6 H Basophils % 0.7 Sodium 141 Potassium 4.2 Chloride 107 Carbon Dioxide 27 Anion Gap 7 L BUN 11 Creatinine 1.6 H Creat Clearance w eGFR 45.98 Random Glucose 92 Calcium 8.3 L Phosphorus 2.6 Magnesium 2.2 Total Bilirubin 0.6 GGT AST 11 L ALT 22 Alkaline Phosphatase 57 D Total Protein 6.6 Albumin 3.1 L Triglycerides 113 Lipase 564 H 10/31/17 14:50 WBC RBC Hgb Hct MCV MCH MCHC RDW Plt Count MPV Neutrophils % Lymphocytes % Monocytes % Eosinophils % Basophils % Sodium Potassium Chloride Carbon Dioxide Anion Gap BUN Creatinine Creat Clearance w eGFR Random Glucose Calcium Phosphorus Magnesium Total Bilirubin GGT 28 AST ALT Alkaline Phosphatase Total Protein Albumin Triglycerides Lipase Abdominal ultrasound noted ASSESSMENT AND PLAN: 52 yom with no significant PMHx admitted with epigastric abdominal pain, nausea , vomiting, diarrhea. _Epigastric pain/nausea/vomiting/diarrhea, ?Viral gastroenteritis vs mild gastritis vs mild pancreatitis Though diarrhea argues against the same. -HLD Plan: Improved, still with epigastric symptoms. GI consult. PPI, IVF, supportive management. No h/o ETOH/Gall stones and non concerning TG. CT A/P oral contrast to assess pancreas/bowels. Dispo planning in 24 hours if non concerning imaging, tolerating diet well, pending GI input. Plan discussed with patient in detail, all questions answered.
--- NOTE | 2017-10-31 18:23 | CON.GI ---
Consult Consult Specialty:: GI Reason for Consultation:: nausea, vomiting, diarrhea x 7 days. Acute onset - History of Present Illness History of Present Illness: A healthy 52 yom with acute onset chills, nausea, vomiting, diarrhea 7 days ago. Denies hematemesis, hematochezia, hematemsis, vomiting coffee-ground like material, dysphagia, odynophagia, jaundice, abdominal pain, altered bowels, pencil-thin, or ribbon-like stools. HAd a screening colonoscopy [address] Vásquez. No ill contacts, eating out. Lives alone. No new medications, diets, herbal preps. - History Source History Provided By: Patient - Alcohol/Substance Use Hx Alcohol Use: No - Smoking History Smoking history: Never smoked Home Medications - Allergies Allergies/Adverse Reactions: Allergies Allergy/AdvReac Type Severity Reaction Status Date / Time No Known Allergies Allergy Verified 10/30/17 07:26 - Home Medications Home Medications: Ambulatory Orders Pantoprazole Sodium [Protonix] 40 mg PO DAILY #30 tablet. 10/25/17 Atorvastatin Ca [Lipitor] 10 mg PO DAILY 10/31/17 Family Disease History - Family Disease History Family History: Unremarkable Review of Systems Findings/Remarks: as per HPI, H&P Physical Exam-GI Vital Signs: Vital Signs Temperature 97.5 F L 10/31/17 09:39 Pulse Rate 87 10/31/17 09:39 Respiratory Rate 18 10/31/17 09:39 Blood Pressure 116/64 10/31/17 09:39 O2 Sat by Pulse Oximetry (%) 97 10/31/17 09:00 Constitutional: Yes: Well Nourished, No Distress, Calm Eyes: Yes: Conjunctiva Clear HENT: Yes: Atraumatic Neck: Yes: Supple Cardiovascular: Yes: Regular Rate and Rhythm Respiratory: Yes: Regular Gastrointestinal Inspection: No: Distention ...Auscultate: Yes: Normoactive Bowel Sounds ...Palpate: Yes: Soft. No: Firm/Rigid, Guarding, Mass, Tenderness, Tenderness, Epigastium, Tenderness, Rebound ...Percussion: No: Fluid Wave Neurological: Yes: Alert, Oriented Labs: CBC, BMP 10/31/17 06:00 10/31/17 06:00 Laboratory Tests 10/30/17 10/30/17 10/30/17 09:25 09:25 10:59 WBC 6.5 RBC 4.25 Hgb 14.3 Hct 42.4 MCV 99.6 H MCH 33.7 MCHC 33.8 RDW 12.4 Plt Count 184 MPV 8.4 Neutrophils % 67.3 Lymphocytes % 19.1 Monocytes % 9.6 Eosinophils % 3.2 D Basophils % 0.8 Sodium 139 Potassium 3.8 Chloride 106 Carbon Dioxide 26 Anion Gap 7 L BUN 13 Creatinine 1.4 H Creat Clearance w eGFR 53.64 Random Glucose 85 Calcium 8.0 L Phosphorus Magnesium Total Bilirubin 0.6 GGT AST 10 L ALT 26 Alkaline Phosphatase 80 Total Protein 7.1 Albumin 3.5 Triglycerides Lipase 634 H Vitamin B12 Serum Folate Urine Color Straw Urine Appearance Clear Urine pH 6.0 Ur Specific [place] 1.008 Urine Protein Negative Urine Glucose (UA) Negative Urine Ketones Negative Urine Blood Negative Urine Nitrite Negative Urine Bilirubin Negative Urine Urobilinogen Negative Ur Leukocyte Esterase Negative Ur Random Sodium 10/31/17 10/31/17 10/31/17 06:00 06:00 06:35 WBC 5.2 RBC 4.15 Hgb 13.9 Hct 41.6 MCV 100.2 H MCH 33.4 MCHC 33.3 RDW 12.7 Plt Count 172 MPV 8.6 Neutrophils % 54.7 Lymphocytes % 30.1 D Monocytes % 9.9 Eosinophils % 4.6 H Basophils % 0.7 Sodium 141 Potassium 4.2 Chloride 107 Carbon Dioxide 27 Anion Gap 7 L BUN 11 Creatinine 1.6 H Creat Clearance w eGFR 45.98 Random Glucose 92 Calcium 8.3 L Phosphorus 2.6 Magnesium 2.2 Total Bilirubin 0.6 GGT AST 11 L ALT 22 Alkaline Phosphatase 57 D Total Protein 6.6 Albumin 3.1 L Triglycerides Lipase 564 H Vitamin B12 Serum Folate Urine Color Urine Appearance Urine pH Ur Specific [place] Urine Protein Urine Glucose (UA) Urine Ketones Urine Blood Urine Nitrite Urine Bilirubin Urine Urobilinogen Ur Leukocyte Esterase Ur Random Sodium 180 10/31/17 10/31/17 10/31/17 08:15 14:50 14:50 WBC RBC Hgb Hct MCV MCH MCHC RDW Plt Count MPV Neutrophils % Lymphocytes % Monocytes % Eosinophils % Basophils % Sodium Potassium Chloride Carbon Dioxide Anion Gap BUN Creatinine Creat Clearance w eGFR Random Glucose Calcium Phosphorus Magnesium Total Bilirubin GGT 28 AST ALT Alkaline Phosphatase Total Protein Albumin Triglycerides 113 Lipase Vitamin B12 396 Serum Folate 6 Urine Color Urine Appearance Urine pH Ur Specific [place] Urine Protein Urine Glucose (UA) Urine Ketones Urine Blood Urine Nitrite Urine Bilirubin Urine Urobilinogen Ur Leukocyte Esterase Ur Random Sodium 11/01/17 11/01/17 06:00 06:00 WBC 4.9 RBC 4.16 Hgb 14.0 Hct 42.0 MCV 101.0 H MCH 33.7 MCHC 33.4 RDW 12.2 Plt Count 170 MPV 8.4 Neutrophils % Lymphocytes % Monocytes % Eosinophils % Basophils % Sodium 140 Potassium 3.9 Chloride 107 Carbon Dioxide 27 Anion Gap 6 L BUN 12 Creatinine 1.5 H Creat Clearance w eGFR 49.54 Random Glucose 82 Calcium 7.7 L Phosphorus Magnesium Total Bilirubin 0.6 GGT AST 8 L D ALT 21 Alkaline Phosphatase 60 Total Protein 6.4 Albumin 3.1 L Triglycerides Lipase Vitamin B12 Serum Folate Urine Color Urine Appearance Urine pH Ur Specific [place] Urine Protein Urine Glucose (UA) Urine Ketones Urine Blood Urine Nitrite Urine Bilirubin Urine Urobilinogen Ur Leukocyte Esterase Ur Random Sodium Imaging - Results Ultrasound: Report Reviewed (liver, renal) Problem List - Problems (1) Gastroenteritis Code(s): K52.9 - NONINFECTIVE GASTROENTERITIS AND COLITIS, UNSPECIFIED Assessment/Plan A 52 yom with acute, viral illness. Asymptomatic and tolerating regular diet. Fatty liver noted on US Macrocytosis Elevated Cr b12/Folate renal evaluation PO hydration observe overnight
[2017-11-01 07:34] LABS: MCH 33.7 pg (25.7-33.7); MCHC 33.4 g/dl (32.0-35.9); MEAN PLT VOLUME 8.4 fl (7.5-11.1); PLATELET COUNT 170 K/MM3 (134-434); RBC 4.16 M/mm3 (4.00-5.60); RDW 12.2 % (11.9-15.9); WHITE BLOOD COUNT 4.9 K/mm3 (4.0-10.0)
[2017-11-01 07:55] LABS: ALBUMIN 3.1 g/dl (3.4-5.0); ANION GAP 6 (8-16); BLOOD UREA NITROGEN 12 mg/dL (7-18); CALCIUM 7.7 mg/dL (8.5-10.1); CHLORIDE 107 mmol/L (98-107); CO2 27 mmol/L (21-32); GLUCOSE,RANDOM 82 mg/dL (74-106); POTASSIUM 3.9 mmol/L (3.5-5.1); SODIUM 140 mmol/L (136-145)
[2017-11-01 07:59] LABS: ALK PHOS 60 U/L (45-117); BILIRUBIN,TOTAL 0.6 mg/dL (0.2-1.0); CREATININE 1.5 mg/dL (0.7-1.3); SGOT/AST 8 U/L (15-37); SGPT/ALT 21 U/L (12-78); TOT PROT 6.4 g/dl (6.4-8.2)
--- NOTE | 2017-11-01 09:32 | PN ---
Progress Note, Physician History of Present Illness: no events. tolerating reg. diet. asymptomatic - Current Medication List Current Medications: Active Medications Sodium Chloride (Normal Saline -) 1,000 mls @ 125 mls/hr IV ASDIR [facility] Last Admin: 10/31/17 09:41 Dose: 125 mls/hr Morphine Sulfate (Morphine Injection -) 0.5 mg IVPUSH Q6H PRN PRN Reason: PAIN LEVEL 7 - 10 Ondansetron HCl (Zofran Injection) 4 mg IVPUSH Q4H PRN PRN Reason: NAUSEA AND/OR VOMITING Pantoprazole Sodium (Protonix -) 40 mg PO DAILY [facility] Last Admin: 10/31/17 09:41 Dose: 40 mg - Objective Vital Signs: Vital Signs Temperature 98.2 F 11/01/17 08:57 Pulse Rate 72 11/01/17 08:57 Respiratory Rate 18 11/01/17 08:57 Blood Pressure 133/64 11/01/17 08:57 O2 Sat by Pulse Oximetry (%) 97 10/31/17 21:33 Constitutional: Yes: Well Nourished, No Distress, Calm Gastrointestinal: Yes: Soft. No: Melena, Tenderness, Vomiting Neurological: Yes: Alert, Oriented Labs: CBC, BMP 11/01/17 06:00 11/01/17 06:00 Problem List - Problems (1) Gastroenteritis Code(s): K52.9 - NONINFECTIVE GASTROENTERITIS AND COLITIS, UNSPECIFIED Assessment/Plan A 52 yom with acute, viral illness. Asymptomatic and tolerating regular diet. Fatty liver noted on US Macrocytosis Elevated Cr b12/Folate renal evaluation PO hydration OK to d/c from GI perspective with 1 week follow up if continues to be asymptomatic
[2017-11-01] MEDS: PANTOPRAZOLE 40 MG TABLET (FP) PO SCH (09:35)
[2017-11-01] MEDS: SODIUM CHLORIDE 1,000 ML IV SCH (10:41)
--- NOTE | 2017-11-01 13:05 | PN ---
Teaching Attending Note Name of Resident: Zakia Fry ATTENDING PHYSICIAN STATEMENT Time of evaluation: 10:30 AM I saw and evaluated the patient. I reviewed the resident's note and discussed the case with the resident. I agree with the resident's findings and plan as documented. SUBJECTIVE: Patient seen and examined, no complaints. Tolerating diet well. OBJECTIVE: Vital Signs Period Temp Pulse Resp BP Sys/Ortega Pulse Ox Last 24 Hr 96 F-98.4 F 61-72 18-18 102-133/57-73 97-97 Intake & Output 10/29/17 10/30/17 10/31/17 11/01/17 23:59 23:59 23:59 23:59 Intake Total 2475 1375 Balance 2475 1375 Weight 220 lb 223 lb 4.8 oz General: lying in bed in no acute distress Abdomen: soft, NT, ND, positive bowel sounds Home Medication List Medication Instructions Recorded Confirmed Type Atorvastatin Ca [Lipitor] 10 mg PO DAILY 10/31/17 10/31/17 History Active Medications Generic Name Dose Route Start Last Admin Trade Name Freq PRN Reason Stop Dose Admin Sodium Chloride 1,000 mls @ 125 mls/hr 10/30/17 19:15 11/01/17 10:41 Normal Saline - IV 125 mls/hr ASDIR XOCHILT Administration Morphine Sulfate 0.5 mg 10/30/17 22:45 Morphine Injection - IVPUSH Q6H PRN PAIN LEVEL 7 - 10 Ondansetron HCl 4 mg 10/30/17 19:14 Zofran Injection IVPUSH Q4H PRN NAUSEA AND/OR VOMITING Pantoprazole Sodium 40 mg 10/31/17 10:00 11/01/17 09:35 Protonix - PO 40 mg DAILY XOCHILT Administration Laboratory Results - last 24 hr 10/31/17 10/31/17 10/31/17 06:35 14:50 14:50 WBC RBC Hgb Hct MCV MCH MCHC RDW Plt Count MPV Sodium Potassium Chloride Carbon Dioxide Anion Gap BUN Creatinine Creat Clearance w eGFR Random Glucose Calcium Total Bilirubin GGT 28 AST ALT Alkaline Phosphatase Total Protein Albumin Vitamin B12 396 Serum Folate 6 Ur Random Sodium 180 11/01/17 11/01/17 06:00 06:00 WBC 4.9 RBC 4.16 Hgb 14.0 Hct 42.0 MCV 101.0 H MCH 33.7 MCHC 33.4 RDW 12.2 Plt Count 170 MPV 8.4 Sodium 140 Potassium 3.9 Chloride 107 Carbon Dioxide 27 Anion Gap 6 L BUN 12 Creatinine 1.5 H Creat Clearance w eGFR 49.54 Random Glucose 82 Calcium 7.7 L Total Bilirubin 0.6 GGT AST 8 L D ALT 21 Alkaline Phosphatase 60 Total Protein 6.4 Albumin 3.1 L Vitamin B12 Serum Folate Ur Random Sodium ASSESSMENT AND PLAN: 52 yom with no significant PMHx admitted with epigastric abdominal pain, nausea , vomiting, diarrhea. _Epigastric pain/nausea/vomiting/diarrhea, ?Viral gastroenteritis vs mild gastritis vs mild pancreatitis Though diarrhea argues against the same. -HLD -QUINTIN vs CKD. Plan: Symptoms resolved, tolerating diet well, GI input appreciated. Patient declined CT A/p but no indication currently. Unclear if CKD stage II, renal ultrasound neg for acute conerns. Patient notified of the findings, discussed in detail need for follow up Blood work, discussion with PCP and outpatient referral to roll tester and to avoid NSAIDs or OTC meds without discussing with his doctor. Patient relays full understanding and agrees to comply with the same. D.c home today. .
[2017-11-01 13:25] VITALS: BP 129/60; PULSE 92; TEMP 98.4
--- NOTE | 2017-11-01 14:48 | DS ---
Physical Exam: SUBJECTIVE: Patient seen and examined. No acute events overnight. Says he feels great, had 1 formed BM, tolerated meals well. Patient refused abdominal CT scan last night. He denies abdominal pain, nausea, vomiting, chest pain, dizziness, SOB, dysuria. OBJECTIVE: Vital Signs Period Temp Pulse Resp BP Sys/Ortega Pulse Ox Last 24 Hr 96 F-98.4 F 61-92 18-20 102-133/57-73 97-97 PHYSICAL EXAM GENERAL: The patient is awake, alert, and fully oriented, in no acute distress. HEAD: Normal with no signs of trauma. EYES: PERRL, extraocular movements intact, sclera anicteric, conjunctiva clear. No ptosis. ENT:] oropharynx clear without exudates, moist mucous membranes. NECK: supple. LUNGS: Breath sounds equal, clear to auscultation bilaterally, no wheezes, no crackles, no accessory muscle use. HEART: Regular rate and rhythm, S1, S2 without murmur, rub or gallop. ABDOMEN: Soft, nontender, +BS, nondistended, normoactive bowel sounds, no guarding, no rebound EXTREMITIES: 2+ pulses, warm, well-perfused, no edema. NEUROLOGICAL: Cranial nerves II through XII grossly intact. Normal speech, gait not observed. PSYCH: Normal mood, normal affect. SKIN: Warm, dry, normal turgor, no rashes or lesions noted LABS Laboratory Results - last 24 hr 10/31/17 10/31/17 10/31/17 06:35 14:50 14:50 WBC RBC Hgb Hct MCV MCH MCHC RDW Plt Count MPV Sodium Potassium Chloride Carbon Dioxide Anion Gap BUN Creatinine Creat Clearance w eGFR Random Glucose Calcium Total Bilirubin GGT 28 AST ALT Alkaline Phosphatase Total Protein Albumin Vitamin B12 396 Serum Folate 6 Ur Random Sodium 180 11/01/17 11/01/17 06:00 06:00 WBC 4.9 RBC 4.16 Hgb 14.0 Hct 42.0 MCV 101.0 H MCH 33.7 MCHC 33.4 RDW 12.2 Plt Count 170 MPV 8.4 Sodium 140 Potassium 3.9 Chloride 107 Carbon Dioxide 27 Anion Gap 6 L BUN 12 Creatinine 1.5 H Creat Clearance w eGFR 49.54 Random Glucose 82 Calcium 7.7 L Total Bilirubin 0.6 GGT AST 8 L D ALT 21 Alkaline Phosphatase 60 Total Protein 6.4 Albumin 3.1 L Vitamin B12 Serum Folate Ur Random Sodium HOSPITAL COURSE: Date of Admission:10/30/17 This is a 52 year old male with no known significant past medical history, presents to the emergency room with complaints of intractable abdominal pain, nausea, vomiting, diarrhea. He was recently seen here at [facility] this past week for nausea, vomiting and headache, was sent home on maalox and protonix. Patient was found to have Acute gastroenteritis, mildly elevated Lipase levels ( 634) and QUINTIN (likely chronic). He was afebrile with no leukocytosis on admission. He was treated with IV fluids and was given pain meds for pain control. Patient refused Abdominal CT. Abd/Renal U/S unremarkable for acute pathology. Patient's symptoms resolved and was able to tolerate diet. Patient will need a renal evaluation outpatient. Unclear if patient is Stage 2 CKD. Discussed with patient the need for outpatient follow up with PCP and Display Decorator. Patient was directed to avoid NSAIDs or any nephrotoxins. Patient in agreement. Date of Discharge: 11/01/17 Minutes to complete discharge: 35 Discharge Summary Reason For Visit: ABD PAIN Condition: Improved - Instructions Diet, Activity, Other Instructions: You were here because of abdominal pain likely caused by a viral infection Your blood test "lipase" was mildly elevated. You had liver ultrasound that was negative for stones or concerns. You were found with abnormal kidney blood test 1.4-1.6). You had a kidney ultrasound that was negative for acute concerns. You will need follow up with your doctor about the same and likely referral to a kidney specialist. Do not take Ibuprofen, aleve, or any other NSAIDs or over the counter medications without discussion with your doctor. Maintain adequate hydration. Follow up with your Primary care physician Recommend to have blood work for kidneys (BMP) with your doctor in 1 week. Follow up with your president ceo & founder in 1 week. There will be no changes to your home medications. Take protonix as was prescribed with emergency room on your recent visit, till seen by your doctor in a week and then as directed. If you have new or worsening pain, jaundice, nausea, vomiting, inability to eat , decreased urination or new concerns call 911 or come to ED. Referrals: Drew Isaac [Primary Care Provider] - 1 Week Ethan Torres MD [Staff Physician] - 1 Week Disposition: HOME - Home Medications Comprehensive Discharge Medication List: Ambulatory Orders Pantoprazole Sodium [Protonix] 40 mg PO DAILY #30 tablet. 10/25/17 Atorvastatin Ca [Lipitor] 10 mg PO DAILY 10/31/17 This patient is new to me today: No Emergency Visit: Yes ED Registration Date: 10/30/17 Care time: The patient presented to the Emergency Department on the above date and was hospitalized for further evaluation of their emergent condition. Critical Care patient: No - Discharge Referral Referred to [facility] Med P.C.: No
== END 2017-11-01 14:30 | disposition home or self-care (01) ==
LOC: JER 07:22 → JERBED 18:01 → J7W 10-31 03:23
PROVIDERS: ADMIT Hospitalist; ATTEND Hospitalist
PROC: 3E033NZ Introduction of Analgesics, Hypnotics, Sedatives into Peripheral Vein, Percutaneous Approach (ICD-10-PCS; principal; 2017-10-30)
PROC: 3E033GC Introduction of Other Therapeutic Substance into Peripheral Vein, Percutaneous Approach (ICD-10-PCS; 2017-10-30)
PROC: 3E0337Z Introduction of Electrolytic and Water Balance Substance into Peripheral Vein, Percutaneous Approach (ICD-10-PCS; 2017-10-30)
DX: R10.13 Epigastric pain (principal); N17.9 Acute kidney failure, unspecified; K52.9 Noninfective gastroenteritis and colitis, unspecified; D50.9 Iron deficiency anemia, unspecified; R79.89 Other specified abnormal findings of blood chemistry
CPT/HCPCS: 36415; 76705-TC; 76775-TC; 80053; 81003; 82570; 82607; 82746; 82977; 83690; 83735; 84100; 84300; 84478; 85025; 85027; 93005; 93010; 96361; 96365; 96375; 99284-25; G0378